=== PATIENT | female | born 1985 | race American Indian/Alaskan Native ===

== ENCOUNTER 2023-03-11 13:02 | Emergency (ER) | payer MEDICAID, OTHER | END 2023-03-11 14:41 | disposition home or self-care (01) | LOC: MW.ED 13:02 | DX: B34.9 Viral infection, unspecified (principal); Z28.310 Unvaccinated for COVID-19; Z72.0 Tobacco use; Z20.822 Contact with and (suspected) exposure to COVID-19 | CPT/HCPCS: 87651-QW; 99282; 99283; U0002 ==